=== PATIENT | female | born 1985 | race Caucasian/White ===

== ENCOUNTER 2016-12-29 21:24 | Inpatient (IN) | payer OTHER ==
--- NOTE | ~2016-12-29 | HP ---
History And Physical [address] [id number] [facility] [place]. [address] NAME: TC NAVA : 89 STATUS : ADM Magdalene PAT#: [id number] AGE: 31 ADM/REG DATE : 12/29/16 MR#: [id number] REPORT SERV DATE: 12/30/16 DICTATED BY: SAJI FOLEY DATE: 12/30/16 REPORT STATUS : Draft TRANSCRIBED BY: ALVIN DATE: 12/30/16 DATE OF ADMISSION: 12/29/2016 CHIEF COMPLAINT: Right-sided flank pain and racing of her heart. HISTORY OF PRESENT ILLNESS: This is a 31-year-old female with no significant past medical history who presents to the emergency room at [facility] with the above-mentioned complaints. History is obtained from the patient, her who is at bedside, and reviewing data available on the [employer] system. According to the patient, she had been in her usual state of health until about Monday when she started having sudden onset of racing of her heart. She did not understand what was happening but felt very uncomfortable, went and laid down in her bed until it . She was doing better in the evening, but the next day, the same thing happened and she was very concerned. She tried calling her physician and trying to get in with them but they had no openings. The next day she says she started experiencing shaking chills along with flank pain which had worsened by this time. She did have increased frequency of urination with no pain radiating to the groin. She did have some pain in the upper part of her left thigh. They finally decided to come to the emergency room here to be evaluated. In the emergency room, she had sepsis with pyelonephritis and a CT of the abdomen and pelvis confirmed the findings. She also had a tiny nonobstructing stones bilaterally as well. The patient was given IV fluid boluses in the emergency room, but had one or two episodes of hypotension despite the fluid administration. Hospitalist Service is asked to admit her for further evaluation and treatment. At the time of my evaluation, she denied any chest pain, palpitations, or orthopnea. She had no cough, hemoptysis, night sweats, or weight loss. She did not have any recent falls or loss of consciousness. She did have chills as mentioned above but without any fevers. She denied any nausea vomiting, diarrhea, hematemesis, hematochezia, or hematuria. No other history of recent travel or exposures other than those mentioned above. PAST MEDICAL HISTORY: Significant for none. SOCIAL HISTORY: She does not smoke, drink, or use recreational drugs. 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 FAMILY HISTORY: Noncontributory. MEDICATIONS: At home were reviewed by me in the chart today and reordered by me. REVIEW OF SYSTEMS: As in history of present illness. All other systems were reviewed in detail and are quite unremarkable. PHYSICAL EXAMINATION: History And Physical [address] [address] NAME: TC NAVA : 87 STATUS : ADM Magdalene PAT#: [id number] AGE: 31 ADM/REG DATE : 12/29/16 MR#: [id number] REPORT SERV DATE: 12/30/16 DICTATED BY: SAJI FOLEY DATE: 12/30/16 REPORT STATUS : Draft TRANSCRIBED BY: ALVIN DATE: 12/30/16 GENERAL: This is a pleasant 31-year-old, not in any acute distress. HEENT: Her head is atraumatic, normocephalic. She is alert, awake, oriented to time, place, and person. Her pupils are equal, reacting to light and accommodating. External ocular muscles are intact. Membranes are moist and pink. Sclerae are nonicteric. NECK: Supple with no jugular venous distention, lymphadenopathy, or thyromegaly. LUNGS: Clear to auscultation with no wheezes, rubs, or crackles. HEART: Heart sounds were regular with no murmurs, rubs, or gallops. ABDOMEN: Diffusely tender to palpation but more so in the right lower middle and upper quadrants. Bowel sounds are present. There was no organomegaly palpable. EXTREMITIES: Showed no cyanosis, clubbing, or edema. NEUROLOGIC: Grossly intact. No focal sensory or motor deficits. Higher functions appeared intact. VITAL SIGNS: Her vital signs today showed a temperature of 100.5 degrees Fahrenheit, pulse was 136, respirations 20 a minute, blood pressure was 124/80, and oxygen saturations were 98% on room air. LABORATORY DATA: Reviewed on the [employer] system showed a normal CMP with a blood glucose of 105. CBC showed a white blood cell count of 11,700, otherwise, normal hemoglobin, hematocrit, and platelet count. Urinalysis showed large blood, small leukocyte esterase, nitrite was negative. There were greater than 182 rbc's and 45 wbc's as well. Films of the CT of the abdomen and pelvis were reviewed by me on the PACS today. Official Radiology report was also reviewed. There is heterogeneous appearance of the upper pole of the right kidney suspicious for pyelonephritis. There are tiny nonobstructing stones bilaterally as well. A 12-lead EKG done in the emergency room was reviewed and interpreted by me. There is sinus tachycardia at a rate of [address]-T changes. IMPRESSION: 1. Right flank pain. 2. Palpitation. 3. Acute pyelonephritis. 4. Nephrolithiasis. PLAN: We will admit Ms. Nava to the Hospitalist Service with monitoring for a 24-hour observation period. We will monitor her vitals carefully as she had dropped her pressures in the emergency room despite fluid administration. She has since recovered, and at the time of my evaluation, she was fine. We will obtain cultures, start her on empiric IV antibiotics. Check her procalcitonin and lactate levels as well. We will offer pain medications as needed and continue fluid resuscitation. We will also place her on unfractionated heparin for DVT prophylaxis while here. I have discussed the above plans with the patient. Questions were answered. She and her are agreeable to the above recommendations. Hospitalist Service will be following her during her stay here. /ALVIN Saji Foley, History And Physical [address] [address] NAME: TC NAVA : 87 STATUS : ADM Magdalene PAT#: [id number] AGE: 31 ADM/REG DATE : 12/29/16 MR#: [id number] REPORT SERV DATE: 12/30/16 DICTATED BY: SAJI FOLEY DATE: 12/30/16 REPORT STATUS : Draft TRANSCRIBED BY: ALVIN DATE: 12/30/16 Danish / [id number] CC: Kelsie Evans M.D.
--- NOTE | ~2016-12-29 | DS ---
Discharge Summary [address] [place]. [address] NAME: TC NAVA : 89 STATUS : DIS Magdalene PAT#: [id number] AGE: 31 ADM/REG DATE : 12/29/16 MR#: [id number] REPORT SERV DATE: 01/02/17 DICTATED BY: MIR BACH DATE: 01/01/17 REPORT STATUS : Draft TRANSCRIBED BY: ALVIN DATE: 01/01/17 ADMISSION DATE: 12/29/2016 DISCHARGE DATE: 01/01/2017 REASON FOR ADMISSION: Sepsis secondary to pyelonephritis. HISTORY OF PRESENT ILLNESS: Please refer to Dr. Nixon's history and physical dated 12/20/2016 for complete details regarding the patient's admission. In brief, the patient was admitted to the Hospitalist Service for sepsis secondary to pyelonephritis. HOSPITAL COURSE: The patient had an uncomplicated hospital course. She presented with a procalcitonin of 0.23, some left flank pain. Urinalysis was remarkable for urinary tract infection. White blood cell count was 11.7. She was in a febrile state. She had a CT scan of her abdomen and pelvis with IV contrast which shows some pyelonephritis along with tiny nonobstructing calculus in the superior pole of left kidney and in the inferior pole of the right kidney. She was placed on IV Rocephin. Blood cultures were obtained where there were no growth to date. Urine culture surprisingly grew out about 50,000 colonies, but she was certainly symptomatic. With IV fluids, her white blood cell count came down to normal. She had a fever for the first two days and then finally defervesced. On the day of discharge, she is feeling much better. She has ambulated in the spencer. She has been afebrile for over 24 hours. Tolerating foods very well. She had reached maximal hospitalization and was requesting to go home. DISCHARGE DIAGNOSES: Sepsis secondary to pyelonephritis, now resolved; nephrolithiasis; tachycardia secondary to sepsis; headache. DISCHARGE MEDICATIONS: Include Ceftin 500 mg twice a day for seven days and Tylenol p.r.n. PROCEDURE: Include CT scan. DICTATED BY: MD ANNIE Robb/ALVIN Mir Bach MD / [id number] CC: Mir Bach MD
[2016-12-29 21:52] LABS: ASCORBIC ACID (UR NOT ORDER) NEG (NEG); BILIRUBIN, URINE NEGATIVE (NEG); ER URINALYSIS TAT 0 Hrs 09 Mins; KETONE, URINE 20 MG/DL (NEG); LEUKOCYTE ESTERASE(NOT OR SMALL (NEG); NITRITE (URINE) NEG (NEG); WBC (NOT ORDERED) (RFLEX) 45 (0-5)
[2016-12-29 22:02] LABS: BASOPHILS 0.3 %; BASOPHILS ABSOLUTE 0.03 10/3/uL (0.0-0.16); EOSINOPHILS 0.3 %; EOSINOPHILS ABSOLUTE 0.04 10/3/uL (0.0-0.53); HEMATOCRIT 38.7 % (36.0-48.0); HEMOGLOBIN 12.3 g/dL (12.0-16.0); IMMATURE GRANULOCYTES 0.2 %; IMMATURE GRANULOCYTES ABSOLUTE 0.02 10/3/uL (0.0-0.11); LYMPHOCYTES 4.9 %; LYMPHOCYTES ABSOLUTE 0.58 10/3/uL (0.67-4.30); MEAN CORPUS HGB CONC 31.8 g/dL (32.0-36.0); MEAN CORPUSCULAR HEMOGLOB 26.3 pg (26.0-34.0); MEAN CORPUSCULAR VOLUME 82.9 fL (80-100); MEAN PLATELET VOLUME 11.3 fL (9.2-13.0); MONOCYTES 7.2 %; MONOCYTES ABSOLUTE 0.85 10/3/uL (0.21-1.20); NEUTROPHILS 87.1 %; NEUTROPHILS ABSOLUTE 10.21 10/3/uL (2.02-8.40); PLATELET COUNT 177 10/3/uL (150-400); RBC DISTRIBUTION WIDTH 15.6 % (12.0-16.0); RED CELL COUNT 4.67 10/6/uL (4.0-5.6); WHITE BLOOD CELLS 11.7 10/3/uL (4.5-10.5)
[2016-12-29 22:03] LABS: MANUAL DIFF NO %
[2016-12-29 22:21] LABS: ALBUMIN 4.1 G/DL (3.5-5.0); ALKALINE PHOSPHATASE 153 U/L (45-117); BUN (BLOOD UREA NITROGEN) 8 MG/DL (6-23); CALCIUM, SERUM 9.1 MG/DL (8.5-10.4); CHLORIDE, SERUM 104 MMOL/L (96-112); CO2 (CARBON DIOXIDE) 24 MMOL/L (24-34); CREATININE 0.86 MG/DL (0.55-1.02); GFR AFRICAN AMERICAN 106 ML/MIN (>=60); GFR NON AFRICAN AMERICAN 91 ML/MIN (>=60); GLOBULIN 4.3 G/DL (2.5-4.1); GLUCOSE, SERUM 105 MG/DL (60-99); POTASSIUM, SERUM 3.8 MMOL/L (3.5-5.3); SGOT(AST) 19 U/L (5-40); SGPT(ALT) 36 U/L (5-65); SODIUM, SERUM 136 MMOL/L (135-148); TOTAL BILIRUBIN 0.7 MG/DL (0-1.2); TOTAL PROTEIN 8.4 G/DL (6.0-8.5)
[2016-12-30] MEDS ORDERED: MACROBID PO (04:17)
[2016-12-30] MEDS ORDERED: ACET500CAP PO (04:17)
[2016-12-30 04:56] LABS: LACTATE 0.9 MMOL/L (0.3-2.4)
[2016-12-30 09:42] LABS: BASOPHILS 0.2 %; BASOPHILS ABSOLUTE 0.02 10/3/uL (0.0-0.16); EOSINOPHILS 0.1 %; EOSINOPHILS ABSOLUTE 0.01 10/3/uL (0.0-0.53); HEMOGLOBIN 11.4 g/dL (12.0-16.0); IMMATURE GRANULOCYTES 0.2 %; IMMATURE GRANULOCYTES ABSOLUTE 0.02 10/3/uL (0.0-0.11); LYMPHOCYTES 7.2 %; LYMPHOCYTES ABSOLUTE 0.75 10/3/uL (0.67-4.30); MEAN CORPUS HGB CONC 31.7 g/dL (32.0-36.0); MEAN CORPUSCULAR HEMOGLOB 26.5 pg (26.0-34.0); MEAN CORPUSCULAR VOLUME 83.5 fL (80-100); MEAN PLATELET VOLUME 11.2 fL (9.2-13.0); MONOCYTES 10.4 %; MONOCYTES ABSOLUTE 1.09 10/3/uL (0.21-1.20); NEUTROPHILS 81.9 %; NEUTROPHILS ABSOLUTE 8.55 10/3/uL (2.02-8.40); PLATELET COUNT 164 10/3/uL (150-400); RED CELL COUNT 4.31 10/6/uL (4.0-5.6); WHITE BLOOD CELLS 10.4 10/3/uL (4.5-10.5)
[2016-12-30 09:49] LABS: MANUAL DIFF NO %
[2016-12-30 09:58] LABS: BUN (BLOOD UREA NITROGEN) 9 MG/DL (6-23); CHLORIDE, SERUM 106 MMOL/L (96-112); CO2 (CARBON DIOXIDE) 24 MMOL/L (24-34); CREATININE 0.94 MG/DL (0.55-1.02); GFR AFRICAN AMERICAN 95 ML/MIN (>=60); GFR NON AFRICAN AMERICAN 82 ML/MIN (>=60); GLUCOSE, SERUM 98 MG/DL (60-99); PHOSPHORUS, SERUM 2.5 MG/DL (2.5-4.5); POTASSIUM, SERUM 3.4 MMOL/L (3.5-5.3); SODIUM, SERUM 137 MMOL/L (135-148)
[2016-12-30 09:59] LABS: CALCIUM, SERUM 8.1 MG/DL (8.5-10.4)
[2016-12-31 06:32] LABS: BASOPHILS 0.4 %; BASOPHILS ABSOLUTE 0.02 10/3/uL (0.0-0.16); EOSINOPHILS 1.1 %; EOSINOPHILS ABSOLUTE 0.05 10/3/uL (0.0-0.53); HEMATOCRIT 30.8 % (36.0-48.0); HEMOGLOBIN 9.7 g/dL (12.0-16.0); IMMATURE GRANULOCYTES 0.2 %; IMMATURE GRANULOCYTES ABSOLUTE 0.01 10/3/uL (0.0-0.11); LYMPHOCYTES ABSOLUTE 0.88 10/3/uL (0.67-4.30); MANUAL DIFF NO %; MEAN CORPUS HGB CONC 31.5 g/dL (32.0-36.0); MEAN CORPUSCULAR HEMOGLOB 26.7 pg (26.0-34.0); MEAN CORPUSCULAR VOLUME 84.8 fL (80-100); MEAN PLATELET VOLUME 11.1 fL (9.2-13.0); MONOCYTES 17.5 %; MONOCYTES ABSOLUTE 0.81 10/3/uL (0.21-1.20); NEUTROPHILS 61.8 %; NEUTROPHILS ABSOLUTE 2.87 10/3/uL (2.02-8.40); PLATELET COUNT 129 10/3/uL (150-400); RED CELL COUNT 3.63 10/6/uL (4.0-5.6); WHITE BLOOD CELLS 4.6 10/3/uL (4.5-10.5)
[2016-12-31 06:39] LABS: BUN (BLOOD UREA NITROGEN) 9 MG/DL (6-23); CALCIUM, SERUM 7.5 MG/DL (8.5-10.4); CHLORIDE, SERUM 111 MMOL/L (96-112); CO2 (CARBON DIOXIDE) 24 MMOL/L (24-34); CREATININE 0.63 MG/DL (0.55-1.02); GFR AFRICAN AMERICAN 140 ML/MIN (>=60); GFR NON AFRICAN AMERICAN 121 ML/MIN (>=60); GLUCOSE, SERUM 89 MG/DL (60-99); PHOSPHORUS, SERUM 2.5 MG/DL (2.5-4.5); SGOT(AST) 18 U/L (5-40); SGPT(ALT) 22 U/L (5-65); SODIUM, SERUM 141 MMOL/L (135-148)
[2016-12-31 06:40] LABS: A/G RATIO 0.8 (0.7-1.9); ALBUMIN 2.6 G/DL (3.5-5.0); ALKALINE PHOSPHATASE 97 U/L (45-117); GLOBULIN 3.3 G/DL (2.5-4.1); TOTAL BILIRUBIN 0.2 MG/DL (0-1.2); TOTAL PROTEIN 5.9 G/DL (6.0-8.5)
[2017-01-01 06:18] LABS: BASOPHILS 0.7 %; BASOPHILS ABSOLUTE 0.02 10/3/uL (0.0-0.16); EOSINOPHILS 4.1 %; EOSINOPHILS ABSOLUTE 0.12 10/3/uL (0.0-0.53); HEMATOCRIT 30.1 % (36.0-48.0); HEMOGLOBIN 9.5 g/dL (12.0-16.0); LYMPHOCYTES 38.1 %; LYMPHOCYTES ABSOLUTE 1.11 10/3/uL (0.67-4.30); MEAN CORPUS HGB CONC 31.6 g/dL (32.0-36.0); MEAN CORPUSCULAR HEMOGLOB 26.7 pg (26.0-34.0); MEAN CORPUSCULAR VOLUME 84.6 fL (80-100); MEAN PLATELET VOLUME 11.7 fL (9.2-13.0); MONOCYTES 18.2 %; MONOCYTES ABSOLUTE 0.53 10/3/uL (0.21-1.20); NEUTROPHILS 38.9 %; NEUTROPHILS ABSOLUTE 1.13 10/3/uL (2.02-8.40); PLATELET COUNT 132 10/3/uL (150-400); RBC DISTRIBUTION WIDTH 15.9 % (12.0-16.0); RED CELL COUNT 3.56 10/6/uL (4.0-5.6); WHITE BLOOD CELLS 2.9 10/3/uL (4.5-10.5)
[2017-01-01 06:21] LABS: MANUAL DIFF NO %
[2017-01-01 06:35] LABS: A/G RATIO 0.8 (0.7-1.9); ALBUMIN 2.6 G/DL (3.5-5.0); ALKALINE PHOSPHATASE 96 U/L (45-117); BUN (BLOOD UREA NITROGEN) 6 MG/DL (6-23); CALCIUM, SERUM 7.8 MG/DL (8.5-10.4); CHLORIDE, SERUM 111 MMOL/L (96-112); CO2 (CARBON DIOXIDE) 23 MMOL/L (24-34); CREATININE 0.65 MG/DL (0.55-1.02); GFR AFRICAN AMERICAN 139 ML/MIN (>=60); GFR NON AFRICAN AMERICAN 120 ML/MIN (>=60); GLOBULIN 3.1 G/DL (2.5-4.1); GLUCOSE, SERUM 80 MG/DL (60-99); PHOSPHORUS, SERUM 2.2 MG/DL (2.5-4.5); POTASSIUM, SERUM 3.7 MMOL/L (3.5-5.3); SGOT(AST) 15 U/L (5-40); SGPT(ALT) 22 U/L (5-65); SODIUM, SERUM 140 MMOL/L (135-148); TOTAL BILIRUBIN 0.2 MG/DL (0-1.2); TOTAL PROTEIN 5.7 G/DL (6.0-8.5)
[2017-01-01] MEDS ORDERED: CEFT5 PO (17:03)
== END 2017-01-01 17:24 | disposition home or self-care (01) | DRG 872 ==
LOC: ER 21:24 → SDC/OF 22:00 → 2SO 12-30 04:09
PROVIDERS: Emergency Medicine; Hospitalist; Internal Medicine
DX: A41.9 Sepsis, unspecified organism (principal); I95.9 Hypotension, unspecified; N10 Acute pyelonephritis; N20.0 Calculus of kidney; R51 Headache; R00.0 Tachycardia, unspecified
CPT/HCPCS: 71020; 74177; 80048; 80053; 81001; 83605; 83735; 84100; 84145; 84703; 85025; 87040; 87086; 93005; 96374; 99285; A9270-GY; J1885; J2405; Q9967